=== PATIENT | female | born 1950 | race Two or more races ===

== ENCOUNTER → 2016-10-25 | Outpatient (CLI) | payer MEDICARE, OTHER ==
--- NOTE | ~2016-10-25 | US85 ---
[facility] A Service of [facility] & [facility] RADIOLOGY TEXT RESULTS PATIENT: AMADA BLANK LOCATION: CNIV : 52 UNIT #: [id number] AGE: [address]: Kenrick Zeng MD SEX: F ORDER DR: [id number] [facility] [address] [place], [place] [address] [id number] O MR#: [id number] Acc #: [id number] NAME: AMADA BLANK : 1950 SEX: F STUDY DATE/TIME: 10/25/2016 12:04 UNIT: CNIV ROOM: STUD[place] [facility] [place] [facility] [place] [facility] [place] Attending Physician: Kenrick Zeng M.D. Referring Physician: Kenrick Zeng M.D. Ordering Physician: Kenrick Zeng M.D. Primary Care Physician: [facility] MEDICAL IMAGING REPORT This report is preliminary unless electronic signature is present EXAM Right leg vein Doppler on 10/25 INDICATIONS Swelling, pain and redness in the right thigh for the last 3 weeks. FINDINGS TECHNIQUE Venous ultrasound examination of the right lower extremity was performed using grayscale, spectral Doppler and color flow Doppler imaging. FINDINGS The examination is negative. There is no evidence of right lower extremity deep venous thrombus from the groin to the lower calf. Visualized greater saphenous vein is also patent. IMPRESSION Negative examination. No evidence of right lower extremity deep venous thrombosis. Dictated by... Axel Merino Jr., M.D. THIS IS AN ELECTRONICALLY VERIFIED REPORT Axel Merino Jr., M.D. at 10/26/2016 2:29 PM DAYNA/fernando TD: 10/25/2016 13:14 JOB #: [id number] MEDICAL IMAGING REPORT Page 1 of 1 COPY
== END | disposition home or self-care (01) ==
LOC: CNIV 11:39
DX: M79.89 Other specified soft tissue disorders (principal); M79.651 Pain in right thigh
CPT/HCPCS: 93971